=== PATIENT | female | born 1980 | race Caucasian/White ===

== ENCOUNTER 2016-10-29 08:36 | Inpatient (IN) | payer BC ==
[~2016-10-29] VITALS: Ht 157.5 cm; Wt 81.8 kg
[~2016-10-29 08:36] MED LIST: DOCU-30 PO; IBUP-1222 PO; OXYC-302 PO; PREN1TAB56 PO
[2016-11-01 13:43] VITALS: BP 113/56
[2016-11-01] MEDS ORDERED: OXYTOCIN 30U/ 0.9% NaCL 500ML 500 ML IV ONE (13:50)
[2016-11-01] MEDS ORDERED: TERBUTALINE 1 MG/ML, 1ML IVPush PRN (14:00)
[2016-11-01] MEDS ORDERED: ONDANSETRON 2MG/ML, 2ML IVPush PRN (14:00)
[2016-11-01] MEDS ORDERED: FENTANYL PF 100 MCG/2ML IV PRN (14:00)
[2016-11-01] MEDS ORDERED: FENTANYL PF 100 MCG/2ML IVPush PRN (14:00)
[2016-11-01] MEDS ORDERED: SODIUM CITRATE/CITRIC ACID 30 ML UDC PO PRN (14:00)
[2016-11-01] MEDS ORDERED: METOCLOPRAMIDE 5 MG/ML, 2ML IVPush PRN (14:00)
[2016-11-01] MEDS ORDERED: NEWBORN KIT ONE (14:27)
[2016-11-01] MEDS ORDERED: LIDOCAINE 1%, 20ML ONE (14:27)
[2016-11-01] MEDS ORDERED: MISOPROSTOL 200 MCG TABLET ONE (14:27)
[2016-11-01] MEDS ORDERED: OXYTOCIN 30U/ 0.9% NaCL 500ML 500 ML ONE (14:27)
[2016-11-01] MEDS: LACTATED RINGERS 1,000 ML IV SCH (20:10)
[2016-11-01] MEDS: D5%-LACTATED RINGERS 1,000 ML IV SCH (21:50)
[2016-11-01] MEDS ORDERED: LIDOCAINE/PF 1.5%-EPI 1:200K, 30ML ONE (23:27)
[2016-11-01] MEDS ORDERED: FENTANYL/BUPIV./NS/PF 250 ML EPIDCONT ONE (23:27)
[2016-11-02] MEDS: LACTATED RINGERS 1,000 ML IV SCH ×4 (00:11→08:11)
[2016-11-02] MEDS ORDERED: FENTANYL/BUPIV./NS/PF 250 ML EPIDCONT SCH (00:11)
[2016-11-02] MEDS ORDERED: LACTATED RINGERS 1,000 ML IVBOLUS PRN (00:30)
[2016-11-02] MEDS: D5%-LACTATED RINGERS 1,000 ML IV SCH ×2 (01:19→05:50)
[2016-11-02] MEDS ORDERED: IBUPROFEN 600 MG TABLET ONE (06:42)
[2016-11-02] MEDS ORDERED: OXYcodone/APAP 5/325MG TABLET ONE (06:42)
[2016-11-02] MEDS ORDERED: OXYTOCIN 30U/ 0.9% NaCL 500ML 500 ML ONE (06:43)
[2016-11-02] MEDS: OXYTOCIN 30U/ 0.9% NaCL 500ML 500 ML IV SCH ×2 (06:52→16:52)
[2016-11-02] MEDS ORDERED: METHYLERGONOVINE 0.2 MG/ML IM PRN (07:00)
[2016-11-02] MEDS ORDERED: MAGNESIUM HYDROXIDE 8%, 30ML UDC PO PRN (07:00)
[2016-11-02] MEDS ORDERED: MISOPROSTOL 200 MCG TABLET PR PRN (07:00)
[2016-11-02] MEDS ORDERED: ONDANSETRON 2MG/ML, 2ML IV PRN (07:00)
[2016-11-02] MEDS ORDERED: OXYcodone/APAP 5/325MG TABLET PO PRN (07:00)
[2016-11-02] MEDS: IBUPROFEN 600 MG TABLET PO PRN ×2 (07:08→19:54)
[2016-11-02 08:45] VITALS: BP 85/47
[2016-11-02] MEDS: PRENATAL VIT/IRON/FA 1 EACH TABLET PO SCH (09:00)
[2016-11-02 11:50] VITALS: BP 111/67
[2016-11-02] MEDS: OXYcodone IR 5MG TABLET PO PRN ×3 (11:56→19:54)
[2016-11-02 16:05] VITALS: BP 96/66
[2016-11-02 19:40] VITALS: BP 93/57
[2016-11-02] MEDS: DOCUSATE 100 MG CAPSULE PO PRN (19:54)
[2016-11-03 01:30] VITALS: BP 85/54
[2016-11-03] MEDS: OXYTOCIN 30U/ 0.9% NaCL 500ML 500 ML IV SCH (02:52)
[2016-11-03] MEDS: OXYcodone IR 5MG TABLET PO PRN (06:35)
[2016-11-03] MEDS: IBUPROFEN 600 MG TABLET PO PRN (06:35)
[2016-11-03 09:30] VITALS: BP 97/52
[2016-11-03] MEDS: PRENATAL VIT/IRON/FA 1 EACH TABLET PO SCH (09:33)
[2016-11-03] MEDS: DOCUSATE 100 MG CAPSULE PO PRN (09:33)
== END 2016-11-03 13:29 | disposition home or self-care (01) | DRG 775 ==
LOC: LDIP 11-01 13:27 → 2NW 11-02 08:22
PROVIDERS: ADMIT Obstetrics & Gynecology; ATTEND Obstetrics & Gynecology
PROC: 3E0R3CZ (ICD-10-PCS; principal; 2016-11-02)
PROC: 10E0XZZ Delivery of Products of Conception, External Approach (ICD-10-PCS; 2016-11-02)
PROC: 10907ZC Drainage of Amniotic Fluid, Therapeutic from Products of Conception, Via Natural or Artificial Opening (ICD-10-PCS; 2016-11-02)
PROC: 0HQ9XZZ Repair Perineum Skin, External Approach (ICD-10-PCS; 2016-11-02)
PROC: 00HU33Z Insertion of Infusion Device into Spinal Canal, Percutaneous Approach (ICD-10-PCS; 2016-11-02)
DX: O34.211 Maternal care for low transverse scar from previous cesarean delivery (principal); O24.429 Gestational diabetes mellitus in childbirth, unspecified control; Z37.0 Single live birth; Z3A.40 40 weeks gestation of pregnancy; O70.0 First degree perineal laceration during delivery
CPT/HCPCS: 36415; 82947; 82962; 85025; 86850; 86900; J3490; J2590; J3010; J7120; J7121